=== PATIENT | male | born 1975 | race Caucasian/White ===

== ENCOUNTER 2022-06-12 15:34 | Emergency (ER) | payer BC ==
[~2022-06-12] VITALS: Ht 185.4 cm; Wt 93.1 kg
[2022-06-12] MEDS ORDERED: KETOROLAC 60 MG/2 ML VIAL IM STA (15:41)
--- NOTE | 2022-06-12 15:53 | ED Lower Extremity ---
General Stated Complaint: ANKLE INJ Source: patient History of Present Illness Date Seen by Provider: Jun 12, 2022 Time Seen by Provider: 15:34 Initial Comments 47 yo male presenting with complaint of pain to right ankle. He was setting up a deer stand and fell. He grabbed a tree branch on his way down and has pain and abrasions to his left hand. He denies hitting his head or having other injuries. He did not lose consciousness. He is not able to bear weight on right foot. He heard and felt a pop in his ankle. He was wearing boots and was unsure if it had broken the skin. He has good sensation and can move his toes. Increased pain with attempted movement at the ankle. Onset: just prior to arrival Severity: severe Pain/Injury Location: right ankle Method of Injury: fell Modifying Factors: Worse With Movement Allergies and Home Medications Allergies Coded Allergies: Penicillins (Verified Allergy, Unknown, 06/12/22) Patient Home Medication List Home Medication List Reviewed: Yes Oxycodone HCl/Acetaminophen (Oxycodone-Acetaminophen 5-325) 5 Mg-325 Mg Tablet, 1 EACH PO Q4H PRN for PAIN-SEVERE (8-10) Prescribed by: CRISTIAN TEE on 06/12/22 3428 Review of Systems Constitutional: No chills, No fever EENTM: no symptoms reported Respiratory: no symptoms reported Cardiovascular: no symptoms reported Gastrointestinal: no symptoms reported Genitourinary: no symptoms reported Musculoskeletal: see HPI Skin: No change in color Psychiatric/Neurological: Denies Numbness Past Ulysisq-Rawfyd-Npjvhc Hx Patient Social History Tobacco Use?: No Substance use?: No Past Medical History Surgery/Hospitalization HX: hypertension Physical Exam Vital Signs Vital Signs - First Documented 06/12/22 15:40 Temp 36.5 Pulse 100 Resp 16 B/P (MAP) 138/96 (110) Pulse Ox 98 O2 Delivery Room Air Capillary Refill : Height, Weight, BMI Height: '" Weight: lbs. oz. kg; BMI Method: General Appearance: WD/WN, no apparent distress HEENT: PERRL/EOMI, pharynx normal Neck: non-tender, full range of motion, supple, normal inspection Cardiovascular: normal peripheral pulses, regular rate, rhythm Respiratory: chest non-tender, lungs clear, normal breath sounds Knees: bilateral knee non-tender, bilateral knee normal inspection, bilateral knee normal range of motion Ankles: right ankle deformity, right ankle limited range of motion, right ankle pain, right ankle soft tissue tenderness, right ankle swelling Neurologic/Tendon: normal sensation, normal motor functions Neurologic/Psychiatric: alert, oriented x 3 Skin: normal color, warm/dry, other (superficial abrasions to left hand and forearm) Procedures/Interventions Splinting and Joint Reduction : Location: Right ankle Pre-Proc Neuro Vasc Exam: normal Post-Proc Neuro Vasc Exam: normal Progress After obtaining verbal consent from the patient that he was given Dilaudid 1 mg IV to help with pain. Then the right lower extremity was placed in a gauze sock. Cotton padding was rolled around the ankle and lower extremity to help w ith padding the fracture site. Then using OCL splint material a sugar-tong and posterior splint were applied to help stabilize the fracture fragments. After applying the splint I tried to apply some medial pressure while stabilizing the foot to see if improved placement of the fibula fracture and widened mortise could be obtained. On repeat x-rays to look to me like there was some mild improvement in the widening of the ankle mortise. Patient remained neurovascular and tendon intact. Counseled to see orthopedics as soon as he got home to [place]. He will need to have them kole-ray and see what his ankle is looking like to help determine if he needs surgery or if this could heal with casting. Progress/Results/Core Measures Results/Orders My Orders Orders - CRISTIAN TEE MD Ketorolac Injection (Toradol Injection) (06/12/22 15:41) Ankle 3 View Right (06/12/22 15:42) Ed Iv/Invasive Line Start (06/12/22 16:17) Ed Ortho/Other Supplies Order (06/12/22 16:17) Ortho Glass (06/12/22 16:17) Orthopedic Equiment (06/12/22 16:17) Crutches (06/12/22 16:17) Hydromorphone Injection (Dilaudid Inject (06/12/22 16:17) Rx-Oxycodone/Apap 5-325 Mg (Rx-Percocet (06/12/22 16:45) Ankle 2 View Right (06/12/22 16:56) Hydromorphone Injection (Dilaudid Inject (06/12/22 16:53) Medications Given in ED Current Medications Medications Dose Ordered Sig/Norma Route Start Time Stop Time Status Last Admin Dose Admin Hydromorphone HCl 2 mg STK-MED ONCE .ROUTE 06/12/22 16:53 06/12/22 16:57 DC 06/12/22 16:53 2 MG Oxycodone/ Acetaminophen 1 ea Q4H PRN PO 06/12/22 16:45 06/12/22 17:21 DC 06/12/22 17:09 1 EA Vital Signs/I&O 06/12/22 06/12/22 15:40 17:18 Temp 36.5 36.5 Pulse 100 100 Resp 16 16 B/P (MAP) 138/96 (110) 138/96 Pulse Ox 98 98 O2 Delivery Room Air Room Air Progress Progress Note #1: Progress Note Offered pain shot but patient did not want narcotic initially and requested Toradol. Give Toradol 60 mg IM and ice and elevate the ankle. Xrays to evaluate the ankle. Progress Note #2: Progress Note Reviewed with patient that he did have a distal fibula fracture and his ankle mortise was widened. Counseled on need for a splint as well as management of the splint and fracture. Follow-up with orthopedics within this next week to see about repeat films and if you would require surgery or if this can heal with being placed in a cast. With splinting well try placing some medial pressure to help reduce the widened ankle mortise. Progress Note #3: Progress Note Patient managed and tolerated splinting well without any immediate complication. He was neurovascular and tendon intact both pre and post splinting. Postreduction films were done and some improvement in alignment with the mortise not being quite as wide. Discharged with return precautions and advised to use crutches and be nonweightbearing. Try to keep foot elevated as much as possible to help with swelling and pain. Prescribed a few Percocet to help with pain until he can see orthopedics. Continue to ice as well as elevate the ankle. Keep splint clean and dry. Nursing cleaned and dressed his left hand where he had abrasions. Diagnostic Imaging Diagonstic Imaging: Xray Plain Films/CT/US/NM/MRI: ankle Comments [facility] [place], [place] NAME: [facility] REC#: [id number] PT STATUS: DEP ER : 1975 PHYSICIAN: CRISTIAN TEE MD ADMIT DATE: 06/12/22/ER FS Signed Date of Exam:06/12/22 ANKLE 3 VIEW RIGHT INDICATION: Pain and deformity after fall from deer stand. TECHNIQUE: Three views of the right ankle. CORRELATION STUDY: None. FINDINGS: Obliquely oriented fracture through the distal fibula shaft. The main distal fracture fragment is displaced dorsally and laterally with significant impaction. The remaining more proximal fracture may be impacted against the distal talus. There is lateral subluxation of the talus with regards to the distal tibia by approximately half the width of the tibia. Small bone fragments at the tip of the medial malleolus are present. Pes planus alignment. Some generalized soft tissue swelling. IMPRESSION: Displaced, impacted, obliquely oriented distal fibular fracture. Significant lateral subluxation of the talus with regards to the distal tibia with small bone fragments at the tip of the medial malleolus. Dictated by: Dictated on workstation # [id number] Dict: 06/12/22 1601 Trans: 06/12/22 1728 [facility] [id number] Interpreted by: PAYTON ERNANDEZ DO Electronically signed by: PAYTON ERNANDEZ DO 06/12/22 1728 Reviewed: Reviewed by Ks Diagonstic Imaging: Xray Plain Films/CT/US/NM/MRI: ankle Comments [facility] [place] [place] NAME: [facility] REC#: [id number] PT STATUS: [facility] ER : 1975 PHYSICIAN: CRISTIAN TEE MD ADMIT DATE: 06/12/22/ER FS Draft Date of Exam:06/12/22 ANKLE 2 VIEW RIGHT INDICATION: Postreduction imaging. EXAMINATION: Right ankle, 06/12/2022. COMPARISON: Same day at 4:00 PM. FINDINGS: 2 views of the ankle. Previously noted displaced distal tibial and fibular fractures are not significantly improved in alignment with marked continued widening of the medial ankle mortise. Overlying splint material obscures fine bony detail. IMPRESSION: Persistently displaced distal tibial and fibular fractures. Dictated on workstation # [id number] Dict: 06/12/228 Trans: 06/12/22 171 [facility] [id number] Interpreted by: CAMILLA BLOOM MD Electronically signed by: Reviewed: Reviewed by Me Departure Impression Primary Impression: Closed fracture of distal end of right fibula Qualified Codes: S82.831A - Other fracture of upper and lower end of right fibula, initial encounter for closed fracture Additional Impressions: Fall from tree, initial encounter Abrasion of left hand, initial encounter Disposition: HOME, SELF-CARE Condition: Stable Departure-Patient Inst. Decision time for Depature: 17:12 Referrals: NO,LOCAL PHYSICIAN (PCP/Family) Primary Care Physician Patient Instructions: Abrasions ED, Ankle Fracture ED, How to Use Crutches, SPLINT CARE Add. Discharge Instructions: Keep splint clean and dry. Try to elevate your ankle and foot above waist level to help with throbbing and swelling. Crutches for non-weight bearing on right foot. Ice 20-30 minutes every few hours as needed for pain and swelling. Consider taking a laxative with your pain medicine to keep from getting constipated. Follow up with Orthopedics or Primary care when you get home. The splint will need to be changed to a cast within the next week. They will need to repeat xrays to see how your ankle is positioned and healing to help determine if it will need any surgery or if it can heal on its own. Scripts Oxycodone HCl/Acetaminophen (Oxycodone-Acetaminophen 5-325) 5 Mg-325 Mg Tablet 1 EACH PO Q4H PRN for PAIN-SEVERE (8-10) MDD 6 for 3 Days, #18 TAB 0 Refills Prov: CRISTIAN TEE MD 06/12/22 CRISTIAN TEE MD Jun 12, 2022 15:53
--- NOTE | 2022-06-12 16:09 | Diagnostic Imaging Report ---
INDICATION: Pain and deformity after fall from deer stand. TECHNIQUE: Three views of the right ankle. CORRELATION STUDY: None. FINDINGS: Obliquely oriented fracture through the distal fibula shaft. The main distal fracture fragment is displaced dorsally and laterally with significant impaction. The remaining more proximal fracture may be impacted against the distal talus. There is lateral subluxation of the talus with regards to the distal tibia by approximately half the width of the tibia. Small bone fragments at the tip of the medial malleolus are present. Pes planus alignment. Some generalized soft tissue swelling. IMPRESSION: Displaced, impacted, obliquely oriented distal fibular fracture. Significant lateral subluxation of the talus with regards to the distal tibia with small bone fragments at the tip of the medial malleolus. Dictated by: Dictated on workstation # [id number]
[2022-06-12] MEDS ORDERED: HYDROmorphone 2 MG/ML VIAL (DILAUDID) IV STA (16:17)
[2022-06-12] MEDS ORDERED: OXYC1TAB11 PO (16:27)
[2022-06-12] MEDS ORDERED: RX-OXYCODONE/APAP 5-325 MG #4 TAB PK PO PRN (16:45)
[2022-06-12] MEDS ORDERED: HYDROmorphone 2 MG/ML VIAL (DILAUDID) ONE (16:53)
--- NOTE | 2022-06-12 17:11 | Diagnostic Imaging Report ---
INDICATION: Postreduction imaging. EXAMINATION: Right ankle, 06/12/2022. COMPARISON: Same day at 4:00 PM. FINDINGS: 2 views of the ankle. Previously noted displaced distal tibial and fibular fractures are not significantly improved in alignment with marked continued widening of the medial ankle mortise. Overlying splint material obscures fine bony detail. IMPRESSION: Persistently displaced distal tibial and fibular fractures. Dictated by: Dictated on workstation # [id number]
[2022-06-12 17:18] VITALS: BP 138/96
== END 2022-06-12 17:21 | disposition home or self-care (01) ==
LOC: ER FS 15:38
DX: S82.831A Other fracture of upper and lower end of right fibula, initial encounter for closed fracture (principal); S60.512A Abrasion of left hand, initial encounter; S50.812A Abrasion of left forearm, initial encounter; W14.XXXA Fall from tree, initial encounter; X50.1XXA Overexertion from prolonged static or awkward postures, initial encounter
CPT/HCPCS: 29515; 73600; 73610